=== PATIENT | female | born 1935 | race Caucasian/White ===

== ENCOUNTER 2018-12-28 05:48 | Observation (INO) ==
--- NOTE | 2018-12-28 07:02 | PROVIDER DOCUMENTATION ---
HPI-Abdominal Pain/GI Problem - General Chief Complaint: Rectal Bleeding Stated Complaint: RECTAL BLEEDING Time Seen by Provider: 12/28/18 06:56 Source: patient Allergies/Adverse Reactions: Patient Allergies Allergy/AdvReac Type Severity Reaction Status Date / Time No Known Allergies Allergy Verified 12/28/18 10:47 Home Medications: Home Medication List Medication Instructions Recorded Confirmed Last Taken Type Aspirin 81 mg PO DAILY 09/06/12 12/28/18 12/28/18 06:30 History Brimonidine/Timolol Ophth Soln 1 drop BID 09/06/12 12/28/18 12/27/18 20:00 Hi story [Combigan Ophth Soln] Diltiazem C.d. [Cardizem C.d] 180 mg PO DAILY 09/06/12 12/28/18 12/27/18 08:00 History ATORVAstatin [Lipitor] 1 dose PO DAILY 12/28/18 12/28/18 12/27/18 08:00 History Allopurinol 1 dose PO BID 12/28/18 12/28/18 12/27/18 20:00 History Bisoprolol/Hydrochlorothiazide 1 dose PO DAILY 12/28/18 12/28/18 12/27/18 08:00 History [Bisoprolol-Hctz 5-6.25 mg Tab] Calcium Carbonate [Caltrate 600] 600 mg PO BID 12/28/18 12/28/18 Unknown History Cholecalciferol (Vitamin D3) 800 unit PO DAILY 12/28/18 12/28/18 Unknown History [Vitamin D] Cyanocobalamin (Vitamin B-12) 500 microgm PO DAILY 12/28/18 12/28/18 Unknown History [Vitamin B-12] Lactobac No.30/Bifidobact No.4 1 cap PO DAILY 12/28/18 12/28/18 Unknown History [Ultimate Stella Probiotic Dr Cp] Meloxicam 1 dose PO DAILY 12/28/18 12/28/18 12/27/18 08:00 History Metformin HCl [Metformin ER 1 dose PO HS 12/28/18 12/28/18 Unknown History Gastric] Potassium Chloride 1 dose PO BID 12/28/18 12/28/18 12/27/18 20:00 History - History of Present Illness-ABD Nature of Presenting Problems: Patient is a 83 year old white female with history of AAA , HTN,atrial fibrillation, and hyperlipidemia who presents with bright red rectal bleeding since 0430 today. Denies abdominal pain, nausea, and vomiting. Onset/Duration: reports: this morning Timing: reports: gone now Activities at Onset: reports: none Associated Symptoms: denies: chest pain, nausea, shortness of breath, vomiting Last BM: this morning Review of Systems - Adult - REVIEW OF SYSTEMS - ADULT Constitutional: denies: chills, fever Eyes: reports: no symptoms reported Ears, Nose, Mouth & Throat: reports: no symptoms reported Cardiovascular: denies: chest pain Respiratory: denies: shortness of breath Gastrointestinal: reports: rectal bleeding. denies: abdominal pain, consti pation, diarrhea, nausea, vomiting Genitourinary: denies: dysuria Musculoskeletal: denies: back pain Integumentary: reports: no symptoms reported Neurological: reports: no symptoms reported Psychiatric: reports: no symptoms reported Endocrine: reports: no symptoms reported Hematologic/Lymphatic: reports: no symptoms reported Allergic/Immunologic: reports: no symptoms reported All Other Systems: Reviewed and Negative Past History - Adult - PAST MEDICAL HISTORY-ADULT Review of Records: reports: Old Records Reviewed, Nursing Assessment Review, Medications Reviewed, Social history reviewed & non-contributory. Major Childhood Illnesses: reports: denies history Cardiovascular: reports: denies history Respiratory: reports: denies history Gastrointestinal: reports: denies history Obstetrical/Gynecological: reports: denies history Genitourinary: reports: denies history Musculoskeletal: reports: denies history Neurological: reports: denies history Endocrine/Immune: reports: denies history Other Conditions: reports: denies history - FAMILY HISTORY Family History: reviewed, not pertinent - SOCIAL HISTORY Smoking: denies Substance Use: denies Living Situation: family Physical Exam-General - PHYSICAL EXAM-ADULT Initial Vital Signs Reviewed: Yes - CONSTITUTIONAL General Appearance: alert, no apparent distress, other (ambulatory) - EYES Eyes: other (clear) - HEAD, EARS, NOSE, MOUTH & THROAT HENMT: normocephalic/atraumatic, moist mucous membranes - NECK Neck: non-tender, full range of motion, supple - RESPIRATORY Respiratory: lungs clear, normal breath sounds - CARDIOVASCULAR Cardiovascular: regular rate, rhythm - GASTROINTESTINAL (ABDOMEN) Abdominal Exam: non tender, soft - MUSCULOSKELETAL Back Exam: normal inspection Extremity: normal range of motion, non-tender - SKIN Integumentary: normal color, normal turgor - NEUROLOGIC Neurologic: grossly normal - PSYCHIATRIC Psych/Mental Status: oriented x 3, anxious Progress - PLAN OF CARE/RESULTS Progress/Plan/Lab Results: Vital Signs - 8 hr 12/28/18 05:55 Temperature 98.1 F Pulse Rate 72 Respiratory Rate 15 Blood Pressure 151/85 O2 Sat by Pulse Oximetry 100 Orders Category Date Time Status Saline Loc NOW Care 12/28/18 06:57 Active CBC WITH ELECTRONIC DIFF [HEME] Stat Lab 12/28/18 06:56 Ordered CMP [COMPREHENSIVE METABOLIC PANEL] [CHEM] Stat Lab 12/28/18 06:56 Uncollected PT [PROTIME WITH INR] [COAG] Stat Lab 12/28/18 06:56 Uncollected TYPE & SCREEN [BBK] Stat Lab 12/28/18 06:57 Uncollected Result Diagrams: 12/29/18 06:12 12/29/18 06:12 - CHANGE OF SHIFT REPORT (ED Provider) 1 Report Given and Care Transferred to:: Dr. Daly Time of Transfer: 07:00 Items Pending: Labs Departure - Departure Date of Disposition Decision: 12/28/18 Time of Disposition Decision: 10:59 DIAGNOSIS: Rectal bleeding Disposition: HOME 01 Certified Medical Emergency: Emergent Condition: Stable - Critical Care Note This patient required my direct & personal management of CC.: No Attestation - Physician/ RYAN Attestation Patient care was provided by Advanced Practice Provider:: No The physician spent face to face time with patient:: Yes Advanced Practice Provider documentation review:: Supervising physician onsite and consulted in the evaluation and care of this patient. The physician did have a face to face encounter with the patient.
[2018-12-28 08:25] LABS: BASO# 0.03 X1000 (0.0-0.2); BASO% 0.3 % (0.0-0.8); EOS# 0.15 X1000 (0.0-0.7); EOS% 1.5 % (0.0-10.0); HEMATOCRIT 41.9 % (37.0-47.0); HEMOGLOBIN 13.1 g/dL (12.0-16.0); IMM GRAN# 0.03 X1000 (0.0-0.04); IMM GRAN% 0.3 % (0.0-0.5); LYMPH# 1.38 X1000 (1.2-3.4); LYMPH% 13.5 % (20.5-51.1); MCH 27.3 PG (27-31); MCHC 31.3 g/dL (33-37); MCV 87.3 FL (81-99); MONO# 0.39 X1000 (0.11-0.59); MONO% 3.8 % (1.7-9.3); MPV 10.4 FL (7.4-10.4); NEUT# 8.24 X1000 (1.4-6.5); NEUT% 80.6 % (42.2-75.2); PLT 225 X1000 (130-400); RDW 14.2 % (11.5-14.5); WBC 10.22 X1000 (4.8-10.8)
[2018-12-28 08:47] LABS: INR 1.09; PROTIME 14.3 Seconds (11.0-16.0)
[2018-12-28 08:58] LABS: ALB/GLOB RATIO 1.1; CALCIUM 9.7 mg/dL (8.8-10.2); CREATININE 1.3 mg/dL (0.5-0.9); POTASSIUM 4.8 mmol/L (3.5-5.1); TOTAL BILIRUBIN 0.56 mg/dL (0.20-1.00); TOTAL PROTEIN 7.6 g/dL (6.3-8.3)
[2018-12-28] MEDS ORDERED: PROTONIX IV ONE ×2 (09:11→10:35)
[2018-12-28] MEDS ORDERED: SODIUM CHLORIDE 0.9% INJ ONE ×2 (09:11→10:35)
[2018-12-28] MEDS ORDERED: ZOFRAN IV PRN (09:34)
[2018-12-28] MEDS ORDERED: MORPHINE IV PRN (09:34)
[2018-12-28] MEDS ORDERED: NS 1,000 ML IV ONE ×3 (09:34→17:35)
[2018-12-28 10:19] LABS: HEMATOCRIT 44.5 % (37.0-47.0); HEMOGLOBIN 14.1 g/dL (12.0-16.0)
[2018-12-28] MEDS: APRESOLINE IV PRN (15:20)
[2018-12-28] MEDS ORDERED: NEXIUM IV SCH (17:45)
[2018-12-28] MEDS ORDERED: SODIUM CHLORIDE 0.9% INJ SCH (17:45)
--- NOTE | 2018-12-28 21:29 | HISTORY AND PHYSICAL ---
CHIEF COMPLAINT: Bleeding per rectum. HISTORY OF PRESENT ILLNESS: She is an 83-year-old white female, had 2 bouts of bleeding per rectum. The whole commode was full of blood. Came to the ER for medical attention. The patient was seen in the emergency room. Hemodynamics were stable. No abdominal pain. The patient had black melenic stool as per the ED physician, grossly heme-positive, hemodynamically stable. Basically admitted to the hospital for hematochezia and further workup. PAST MEDICAL HISTORY: Incomplete right bundle, thoracic aortic aneurysm 5.4 cm, gallstones, diverticulosis, CAD with a stent in the RCA, type 2 diabetes, right bundle branch block, glaucoma, gout, history of shingles on the left P3 distribution stable, hyperlipidemia, hypertension, diverticulosis. PAST SURGICAL HISTORY: Partial hysterectomy, right coronary artery stent, AAA repair, hammertoe repair. MEDICATIONS: Allopurinol 100 mg daily, Lipitor 40 once daily, Cardizem 180 daily, Combigan 1 drop b.i.d., Lumigan 1 drop twice daily, metformin 500 p.o. b.i.d., Mobic 15 daily, aspirin 81 mg daily, Ziac 5 mg daily. ALLERGIES: Zestril. 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 No smoking, no alcohol. FAMILY HISTORY: Father , cause was not known. Mom of natural causes. HEALTH MAINTENANCE: Last flu vaccine February 2018, pneumococcal 2016, shingles 2013, last colonoscopy 2010, mammography January 2017. REVIEW OF SYSTEMS: HEENT: No headache, no vision problem. No earache. No sore throat. Neck: No goiter. No lymphadenopathy. No bruit. Cardiopulmonary: No chest pain, shortness of breath, PND, orthopnea. GI: No nausea, vomiting, abdominal pain, altered bowel habits, diarrhea, constipation, bleeding per rectum. Musculoskeletal: No swelling of legs, swelling of feet. No joint pain. Neurologic: No focal symptoms of weakness. PHYSICAL EXAMINATION: VITAL SIGNS: Temperature is 97 degrees, pulse 94. Vitals are stable. 98% on room air. HEENT: Atraumatic, normocephalic. Pupils equal, react to light. TMs are normal. Nose and throat within normal limits. NECK: Supple. No lymphadenopathy. No goiter. CHEST: Bilateral air entry. HEART: Sounds are regular. No murmur. ABDOMEN: Belly is soft, obese, nontender. No signs of peritonitis. RECTAL: Deferred. EXTREMITIES: No peripheral edema, cyanosis. No obvious neurological deficits. INVESTIGATIONS: CBC: White cell count 10, hematocrit 44, platelets 225,000. PT/INR is normal. SMA 7 is normal. Creatinine 1.3, glucose 117. LFTs were normal. ASSESSMENT AND PLAN: 1. An 83-year-old white female admitted to the hospital with hematochezia, black melenic stool, appears to be gastrointestinal bleeding and currently stable. No bouts of bleeding while she is in the hospital. Continue to monitor serial hematocrits. Hold the aspirin, Mobic and Tylenol as needed for pain. If symptomatic, consult with Dr. Cloud's group. Continue IV fluids, IV Protonix. 2. Hypertension. Hydralazine as needed. 3. Glaucoma drops to be started. 4. Gout on Zyloprim. 5. Hyperlipidemia on Lipitor. 6. Thoracic aortic aneurysm 5.4 cm currently stable under the care of cardiac surgeons at [facility] and Dr. SIBLEY is going to follow over the weekend. cc: Rashaun Mercado MD MTDD
[2018-12-28 21:42] LABS: URINE SOURCE CLEAN CATCH
[2018-12-28 21:45] LABS: BILIRUBIN URINE NEGATIVE (NEGATIVE); BLOOD URINE NEGATIVE (NEGATIVE); COLOR YELLOW; GLUCOSE URINE NEGATIVE (NEGATIVE); KETONE URINE NEGATIVE (NEGATIVE); LEUKOCYTES URINE NEGATIVE (NEGATIVE); NITRITE URINE NEGATIVE (NEGATIVE); PH URINE 7.5; PROTEIN URINE NEGATIVE (NEGATIVE); SP GRAVITY URINE 1.012; TURBIDITY URINE CLEAR (CLEAR); UROBILINOGEN URINE NORMAL (NORMAL)
[2018-12-28] MEDS: COMBIGAN OPHTH SOLN BOTH EYES SCH (21:45)
[2018-12-28] MEDS: HUMULIN R SUBQ SCH (21:45)
[2018-12-28 21:46] LABS: UR EPITHELIAL CELLS <10 /HPF (<10); URINE BACTERIA NEGATIVE /HPF; URINE RBC <10 /HPF (<10); URINE WBC <10 /HPF (<10)
[2018-12-28] MEDS: ZYLOPRIM PO SCH (21:46)
[2018-12-28] MEDS: CALTRATE 600 PO SCH (21:46)
[2018-12-29] MEDS: HUMULIN R SUBQ SCH ×4 (06:11→21:43)
[2018-12-29 06:27] LABS: BASO# 0.03 X1000 (0.0-0.2); BASO% 0.4 % (0.0-0.8); EOS# 0.12 X1000 (0.0-0.7); EOS% 1.4 % (0.0-10.0); HEMATOCRIT 40.1 % (37.0-47.0); HEMOGLOBIN 12.5 g/dL (12.0-16.0); LYMPH# 1.16 X1000 (1.2-3.4); LYMPH% 13.9 % (20.5-51.1); MCH 27.2 PG (27-31); MCHC 31.2 g/dL (33-37); MCV 87.4 FL (81-99); MONO# 0.44 X1000 (0.11-0.59); MONO% 5.3 % (1.7-9.3); MPV 10.2 FL (7.4-10.4); NEUT# 6.58 X1000 (1.4-6.5); PLT 218 X1000 (130-400); RBC 4.59 XMIL (4.2-5.4); RDW 14.4 % (11.5-14.5); WBC 8.33 X1000 (4.8-10.8)
[2018-12-29 06:47] LABS: CALCIUM 9.5 mg/dL (8.8-10.2); POTASSIUM 4.1 mmol/L (3.5-5.1)
[2018-12-29] MEDS: VITAMIN D PO SCH (09:30)
[2018-12-29] MEDS: VITAMIN B-12 PO SCH (09:31)
[2018-12-29] MEDS: COMBIGAN OPHTH SOLN BOTH EYES SCH ×2 (09:31→21:43)
[2018-12-29] MEDS: PATIENT'S OWN MED PO SCH (09:31)
[2018-12-29] MEDS: ZYLOPRIM PO SCH ×2 (09:31→21:43)
[2018-12-29] MEDS: CALTRATE 600 PO SCH ×2 (09:31→21:43)
--- NOTE | 2018-12-29 10:53 | PROGRESS NOTE ---
DATE: 12/29/2018 VITAL SIGNS: Vital signs stable with temperature 97.6 degrees heart rate 84, respiration 18, blood pressure 156/100, O2 saturation on room air 99%. LABORATORY: Hemoglobin 12.5, hematocrit 40.1, white blood count 8300. ASSESSMENT: The patient has had no additional bowel movements since yesterday. She feels well, except for some abdominal gas discomfort. She states that she takes blood pressure medication at home and has not had any in the hospital. PLAN: Ambulate, resume home blood pressure medicine, recheck hematocrit tomorrow morning. If she continues to be stable, she might be discharged tomorrow. cc: MD Rashaun Galicia MD
[2018-12-29] MEDS ORDERED: SODIUM CHLORIDE 0.9% INJ SCH (11:00)
[2018-12-29] MEDS ORDERED: PROTONIX IV SCH (11:00)
[2018-12-29] MEDS: CARDIZEM CD PO SCH (11:23)
[2018-12-29] MEDS: ZIAC 5/6.25 MG PO SCH (11:23)
[2018-12-29] MEDS ORDERED: LIPITOR PO SCH (21:00)
[2018-12-30 06:28] LABS: BASO# 0.02 X1000 (0.0-0.2); BASO% 0.2 % (0.0-0.8); EOS# 0.16 X1000 (0.0-0.7); EOS% 1.8 % (0.0-10.0); HEMATOCRIT 40.3 % (37.0-47.0); HEMOGLOBIN 12.6 g/dL (12.0-16.0); LYMPH# 1.25 X1000 (1.2-3.4); LYMPH% 13.9 % (20.5-51.1); MCH 27.3 PG (27-31); MCHC 31.3 g/dL (33-37); MCV 87.4 FL (81-99); MONO% 5.5 % (1.7-9.3); MPV 10.1 FL (7.4-10.4); NEUT# 7.08 X1000 (1.4-6.5); NEUT% 78.6 % (42.2-75.2); PLT 211 X1000 (130-400); RBC 4.61 XMIL (4.2-5.4); RDW 14.4 % (11.5-14.5); WBC 9.01 X1000 (4.8-10.8)
[2018-12-30] MEDS: HUMULIN R SUBQ SCH (06:31)
[2018-12-30 07:05] LABS: CALCIUM 9.4 mg/dL (8.8-10.2); POTASSIUM 4.3 mmol/L (3.5-5.1)
[2018-12-30 07:44] VITALS: BP 181/92
[2018-12-30] MEDS: CARDIZEM CD PO SCH (09:40)
[2018-12-30] MEDS: APRESOLINE IV PRN (09:40)
[2018-12-30] MEDS: PATIENT'S OWN MED PO SCH (09:41)
[2018-12-30] MEDS: VITAMIN B-12 PO SCH (09:41)
[2018-12-30] MEDS: ZYLOPRIM PO SCH (09:41)
[2018-12-30] MEDS: ZIAC 5/6.25 MG PO SCH (09:41)
[2018-12-30] MEDS: VITAMIN D PO SCH (09:41)
[2018-12-30] MEDS: CALTRATE 600 PO SCH (09:41)
[2018-12-30] MEDS: COMBIGAN OPHTH SOLN BOTH EYES SCH (09:41)
--- NOTE | 2018-12-30 09:59 | DISCHARGE SUMMARY ---
ADMISSION DATE: 12/28/2018 DISCHARGE DATE: 12/30/2018 FINAL DIAGNOSES: 1. Gastrointestinal bleeding. 2. Melena. 3. Hypertension. 4. Hyperlipidemia. 5. Gout. 6. Dyspepsia. DISCHARGE MEDICATIONS: Usual medications at home except increase in diltiazem from 180 to 240 mg daily. HISTORY: This is the first recent [facility] admission for this 83-year-old white female patient of Dr. Mercado who had some melena and weakness at home and presented for evaluation. She had a couple of episodes of moderate melena. She was hospitalized for further evaluation. INITIAL LABORATORY: Hemoglobin 13.1, hematocrit 41.9, white blood count 10,200. Basic metabolic profile normal except for elevated blood sugar 134. HOSPITAL COURSE: Her hematocrit remained stable and this morning was 40.3. She had a bowel movement yesterday which was a little darker than usual, but no gross melena. She is feeling well. Blood pressure continues to be elevated at 180/92. She has no abdominal discomfort, and is eating and ambulating. She is discharged home to be followed as an outpatient by Dr. Mercado. Mobic is discontinued. She may resume the aspirin 81 mg 1 daily with food. She is to report any additional melena or weakness and is to follow up with Dr. Mercado on in his office. cc: MD Rashaun Galicia MD
[2018-12-31] MEDS ORDERED: CARDIZEM CD PO SCH (09:00)
== END 2018-12-30 10:49 | disposition home or self-care (01) ==
LOC: 3N 05:48 → ED 05:48
PROVIDERS: ADMIT Internal Medicine; ATTEND Internal Medicine